=== PATIENT | female | born 1995 | race Two or more races ===

== ENCOUNTER 2022-10-10 20:41 | Emergency (ER) | payer BC, OTHER ==
[~2022-10-10] VITALS: Ht 160 cm; Wt 88.6 kg
[2022-10-11] MEDS ORDERED: ALBUAER3 IN (00:24)
[2022-10-11] MEDS ORDERED: PRED20TA2 PO (00:24)
[2022-10-11] MEDS ORDERED: AZIT-74 PO (00:24)
[2022-10-11] MEDS ORDERED: IPRATROPIUM BROM 0.5 MG/2.5ML INH SOL NEB ONE (00:30)
[2022-10-11] MEDS ORDERED: DexAMETHasone SOD PHOS 10MG/1ML VIAL INJ IM ONE (00:30)
[2022-10-11] MEDS ORDERED: ALBUTEROL SULF 2.5 MG/0.5ML(0.5%) NEB SOLN NEB ONE (00:30)
[2022-10-11 01:21] VITALS: BP 114/69; PULSE 70; RESP 17; TEMP 98.4; O2SAT 100
== END 2022-10-11 01:22 | disposition home or self-care (01) ==
LOC: ER 20:44
DX: J45.901 Unspecified asthma with (acute) exacerbation (principal); Z77.120 Contact with and (suspected) exposure to mold (toxic)
CPT/HCPCS: 71045; 94640; 96372; 99283; J1100; J7644